=== PATIENT | male | born 1975 | race African-American/Black ===

== ENCOUNTER 2020-07-12 16:07 | Emergency (ER) | payer MEDICAID ==
[~2020-07-12] VITALS: Ht 175.3 cm; Wt 74.8 kg
--- NOTE | 2020-07-12 16:07 | NUR ---
PT BIB SELF C/O SUICIDAL IDEATION PLAN IS TO WALK INTO THE FWY, PT IS AAOX4, NOT IN RESPIRATORY DISTRESS, V/S STABLE, KEPT RESTED AND COMFORTABLE. WILL CONTINUE TO MONITOR.
--- NOTE | 2020-07-12 16:30 | NUR ---
URINE SPECIMEN COLLECTED AND SENT TO LAB.
--- NOTE | 2020-07-12 16:35 | NUR ---
PT SEEN AND EXAMINED BY .
--- NOTE | 2020-07-12 16:48 | NUR ---
ER PHLEB AT BEDSIDE FOR BLOOD DRAW.
[2020-07-12 17:04] LABS: BASOPHILS % (AUTO) 1.4 % (0.0-2.0); EOSINOPHILS % (AUTO) 11.5 % (0.0-6.0); HEMATOCRIT 39 % (39-51); HEMOGLOBIN 13.3 g/dL (13.5-17.5); LYMPHOCYTES # (AUTO) 1.6 /CMM (0.8-4.8); LYMPHOCYTES % (AUTO) 46.7 % (20.0-44.0); MEAN CORPUSCULAR HGB CONC 34 g/dl (31.0-36.0); MEAN CORPUSCULAR VOLUME 92 fL (80-96); MONOCYTES # (AUTO) 0.3 /CMM (0.1-1.30); MONOCYTES % (AUTO) 9.3 % (2.0-12.0); NEUTROPHILS % (AUTO) 31.1 % (43.0-81.0); PLATELET COUNT (AUTO) 159 /CMM (150-450); RED BLOOD CELL COUNT(AUTO) 4.29 MIL/uL (4.5-6.0); WHITE BLOOD COUNT (AUTO) 3.4 K/uL (4.3-11.0)
[2020-07-12 17:11] LABS: BILIRUBIN,URINE Negative (NEGATIVE); COLOR,URINE YELLOW (YELLOW); LEUKOCYTE ESTERASE ,URINE Negative (NEGATIVE); NITRITE, URINE Negative (NEGATIVE); PROTEIN,URINE Negative (NEGATIVE); UGLUCOSE Negative (NEGATIVE)
[2020-07-12 17:18] LABS: BACTERIA,URINE None seen /HPF (None Seen); RBC,URINE 0-2 /HPF (0-2); SQUAMOUS EPITHELIAL CELL,UR Few /HPF (None Seen); WBC,URINE 0-2 /HPF (0-3)
[2020-07-12 17:22] LABS: ALANINE AMINOTRANSFERASE 70 U/L (12-78); ALBUMIN 3.2 g/dL (3.4-5.0); ALCOHOL, BLOOD < 3 mg/dL (0-0); ALKALINE PHOSPHATASE 115 U/L (46-116); ASPARTATE AMINOTRANSFERASE 72 U/L (15-37); BILIRUBIN,DIRECT 0.1 mg/dL (0.0-0.2); BILIRUBIN,TOTAL 0.3 mg/dL (0.2-1.0); CARBON DIOXIDE 28 mmol/L (21-32); CHLORIDE 103 mmol/L (98-107); CREATININE 1.2 mg/dL (0.6-1.3); GLUCOSE 92 mg/dL (74-106); POTASSIUM 4.2 mmol/L (3.5-5.1); SODIUM SERUM 138 mmol/L (136-145); TOTAL PROTEIN, SERUM 8.1 g/dL (6.4-8.2); UREA NITROGEN, BLOOD 19 mg/dL (7-18)
[2020-07-12 17:26] LABS: ACETAMINOPHEN < 0 ug/ml (10-30)
--- NOTE | 2020-07-12 18:24 | NUR ---
LAB CALLED, COVID NEGATIVE
--- NOTE | 2020-07-12 19:30 | NUR ---
FACESHEET AND CLINICAL FAXED TO [facility] INTAKE FOR VOLUNTARY PSYCH ADMISSION.
--- NOTE | 2020-07-12 22:51 | NUR ---
REC'D A CALL FROM KARSTEN AT [facility] INTAKE: PT GOT ACCEPTED AT [facility] AT [place] BY [address] RICH. # FOR REPORT: [phone] "PLEASE ARRANGE TRANSPORTATION AFTER 0100"
--- NOTE | 2020-07-12 22:58 | NUR ---
TRANSPORT CALLED ([facility]) ETA 0100.
--- NOTE | 2020-07-13 00:28 | NUR ---
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 REPORT GIVEN
--- NOTE | 2020-07-13 00:31 | NUR ---
REPORT GIVEN TO JAMES
[2020-07-13 00:38] VITALS: BP 122/76
--- NOTE | 2020-07-13 00:38 | NUR ---
KRISTOPHER AT BEDSIDE REPORT GIVEN TO [facility] TRANSPORT.
== END 2020-07-13 00:39 ==
LOC: ER 16:07
DX: R45.851 Suicidal ideations (principal); F99 Mental disorder, not otherwise specified; Z20.822 Contact with and (suspected) exposure to COVID-19
CPT/HCPCS: 36415; 80048; 80076; 80143; 80307; 80320; 81001; 85025; 87426; 99285; C9803; G0480